=== PATIENT | female | born 1985 | race African-American/Black ===

== ENCOUNTER 2017-07-23 16:57 | Observation (INO) | payer MEDICAID, OTHER ==
[~2017-07-23] VITALS: Ht 165.1 cm; Wt 72.6 kg
== END 2017-07-23 19:10 | disposition home or self-care (01) ==
LOC: L&D 16:57
PROVIDERS: ADMIT Obstetrics & Gynecology; ATTEND Obstetrics & Gynecology
DX: O46.93 Antepartum hemorrhage, unspecified, third trimester (principal); O36.8130 Decreased fetal movements, third trimester, not applicable or unspecified; O26.893 Other specified pregnancy related conditions, third trimester; R10.9 Unspecified abdominal pain; Z3A.34 34 weeks gestation of pregnancy
CPT/HCPCS: 76805; 76818; 99281; G0378